=== PATIENT | female | born 1965 ===

== ENCOUNTER 2024-06-07 13:18 | Outpatient (CLI) | payer OTHER ==
[~2024-06-07 13:18] MED LIST: ALBUTEROL17 G1 IH; CLARITIN-D1 TAB.SR1 PO; FORADIL12 MCG IH; SINGULAIR 4MG4 MG PO
== END 2024-06-07 13:23 | disposition home or self-care (01) ==
LOC: SONOGRAMA 13:18
PROVIDERS: ATTEND Pathology Anatomic Pathology & Clinical Pathology
DX: D34 Benign neoplasm of thyroid gland (principal); E07.89 Other specified disorders of thyroid; E04.1 Nontoxic single thyroid nodule